=== PATIENT | male | born 1990 | race Caucasian/White ===

== ENCOUNTER 2025-06-29 10:53 | Outpatient (OUT) | payer OTHER, SELFPAY ==
--- OUTSIDE RECORDS SUMMARY | 2025-06-29 11:00 | XMS_ITS | Patient Health Record ---
Author Organization [facility] in [place] Address [address] [place] [address] Care Team Providers Care Senior Physician Name Role Phone CAMI LOVETT MD Primary Care Provider Cami Lovett Unavailable [phone] Allergies Allergen (clinical drug ingredient) Drug/Non Drug Allergy documented on EMR Reaction Allergy Type Onset Date Status Penicillin Unknown Drug Allergy Active Reason For Referral No Information Social History Tobacco Use: Social History Observation Description Date Details (start date - stop date) Never Smoker NA - NA Tobacco Control (Standard) Question Answer Notes Tobacco use: Nonsmoker AUDIT-C (Standard) Question Answer Notes Did you have a drink containing alcohol in the p ast year? No Points 0 Interpretation Negative Problems Problem Type SNOMED Code ICD Code Onset Dates Problem Status W/U Status Risk Notes Problem Well adult (423265055) Well adult (Z00.00) Active confirmed Vital Signs Blood pressure diastolic 82 mm Hg 06/29/2025 Height 71 in 06/29/2025 Blood pressure systolic 142 mm Hg 06/29/2025 Weight 183.8 lbs 06/29/2025 BMI 25.63 kg/m2 06/29/2025 Encounters Encounter Location Date Provider Diagnosis [facility] [address] [place] [address] 06/29/2025 Cami Lovett Well adult Z00.0 0 Assessments Encounter Date Diagnosis (ICD Code) Assessment Notes Treatment Notes Treatment Clinical Notes Section Notes 06/29/2025 Well adult (ICD-10 - Z00.00) Plan Of Treatment Pending Test Test Name Order Date HEMOGLOBIN A1C (GLYCO) 06/29/2025 LIPID PANEL (CHOL/TRIG/HDL/LDL) 06/29/20 25 CMP (COMP MET RICH) w/eGFR CKD-EPI 2024 CBC WITH DIFF 06/29/2025 Insurance Providers Payer Name Payer Address Payer Phone Subscriber Number Group Number Insured Name Patient Relationship to Insured Coverage Start Date Coverage End Date [employer] [address] [place] [phone] [id number] Pro Franco Child - Insured has Financial Responsibility
[2025-06-29 11:23] LABS: Hematocrit 43.7 % (42.0-54.0); Hemoglobin 14.8 g/dL (14.0-18.0); Immature Granulocytes Abs Auto 0.00 10^3/uL (0.00-0.03); Immature Granulocytes Pct Auto 0.0 % (0.0-0.5); Lymphocytes Absolute Auto 1.3 10^3/uL (1.2-3.8); Mean Corpuscular HGB Conc 33.9 g/dL (29.9-35.2); Mean Corpuscular Hemoglobin 30.6 pg (25.9-34.0); Mean Corpuscular Volume 90.5 fL (80.0-94.0); Platelet Count 212 10^3/uL (150-450); Red Blood Count 4.83 10^6/uL (4.70-6.10); White Blood Count 3.9 10^3/uL (4.0-11.0)
[2025-06-29 11:34] LABS: Alanine Aminotransferase 13 U/L (16-63); Albumin Globulin Ratio 1.2; Albumin Level 4.0 g/dL (3.4-5.0); Alkaline Phosphatase 57 U/L (46-116); Anion Gap 11.3; Aspartate Amino Transferase 17 U/L (15-37); Blood Urea Nitrogen 14.0 mg/dL (7.0-18.0); Calcium 9.2 mg/dL (8.5-10.1); Carbon Dioxide 29.8 mmol/L (21.0-32.0); Chloride 106 mmol/L (98-107); Estimated GFR (African America >60 (>=60 mL/min/1.73m^2); Estimated GFR (Non-African Ame >60 (>=60 mL/min/1.73m^2); Globulin 3.3 g/dL; Glucose 103 mg/dL (74-106); Potassium 4.1 mmol/L (3.5-5.1); Sodium 143 mmol/L (136-145); Total Protein 7.3 g/dL (6.4-8.2)
[2025-06-29 11:36] LABS: Cholesterol 150 mg/dL (<=200); HDL Cholesterol 55 mg/dL (40-60); Triglycerides 36 mg/dL (<=150); VLDL CHOLESTEROL 7.2 mg/dL
== END 2025-06-29 10:54 | disposition home or self-care (01) ==
PROVIDERS: PCP Family Medicine; Visit Provider Family Medicine
DX: Z00.00 Encounter for general adult medical examination without abnormal findings (principal)
CPT/HCPCS: 36415; 80053; 80061; 83036; 85025